=== PATIENT | female | born 1945 | race Caucasian/White ===

== ENCOUNTER 2017-07-14 12:20 | Inpatient (IN) | payer MEDICARE, MEDICAID ==
[2017-07-14] MEDS ORDERED: oxyCODONE 5 MG Tab PO PRN (17:13)
[2017-07-14] MEDS ORDERED: traMADol 50 MG Tab PO PRN (17:15)
[2017-07-14] MEDS ORDERED: Zolpidem 5 MG Tab PO PRN (17:31)
[2017-07-14] MEDS: Furosemide 40 MG Tab PO SCH (17:37)
[2017-07-14] MEDS: Celecoxib 100 MG Cap PO SCH ×2 (17:37→17:39)
--- NOTE | 2017-07-14 17:41 | PCM.HP ---
H&P History of Present Illness - General Date of Service: 07/14/17 Admit Problem/Dx: Left Total Knee Arthroplasty Admission Diagnosis/Problem Admission Diagnosis/Problem Arthroplasty of knee Source of Information: Patient History Limitations: Reports: No Limitations - History of Present Illness Initial Comments - Free Text/Narative: Jessenia is a 71 year old female who is admitted to swing bed from [facility]. She has a left total knee arthroplasty on 07/10/[address] Willis at [facility]. She denies any complications in the intra op or post operative period. She reports her pain has been well controlled and she has been moving around well. She denies any numbness or tingling to affected area. Does report some bruising to left knee. Symptom Onset Date: 07/10/17 Location: Reports: Lower Extremity, Left Left Knee Pain Score (Numeric/FACES): 4 - Related Data Allergies/Adverse Reactions: Allergies Allergy/AdvReac Type Severity Reaction Status Date / Time No Known Allergies Allergy Verified 07/14/17 15:57 Home Medications: Home Meds Allopurinol 300 mg PO DAILY 01/03/15 [History] Ascorbic Acid [Vitamin C] 500 mg PO DAILY 01/03/15 [History] Chromium Picolinate 600 mcg PO DAILY 01/03/15 [History] Furosemide 40 mg PO BID 01/03/15 [History] Insulin Glarg,Human.Rec.Analog [LantUS] 20 unit SUBCUT BEDTIME 01/03/15 [History ] Levothyroxine 200 mcg PO ACBREAKFAST 01/03/15 [History] Oxybutynin 5 mg PO TID 01/03/15 [History] Potassium Chloride [Klor-Con M20] 20 meq PO DAILY 01/03/15 [History] Spironolactone [Spironolactone] 25 mg PO DAILY 01/03/15 [History] Vitamin B Complex 3 each PO DAILY 01/03/15 [History] Vitamin E 400 unit PO DAILY 01/03/15 [History] Zolpidem Tartrate 10 mg PO BEDTIME PRN 01/03/15 [History] Calcium Carbonate/Vitamin D3 [Calcium 500-Vit D3 200 Tablet] 1 tab PO DAILY 06/22 [History] Lecithin 1,200 mg PO DAILY 07/14/17 [History] Magnesium Gluconate [Mag-G] 500 mg PO DAILY 07/14/17 [History] Multivitamin with Minerals [Multiple Vitamin] 1 tab PO DAILY 07/14/17 [History] Past Medical History HEENT History: Reports: Impaired Vision Cardiovascular History: Reports: Afib, CAD, High Cholesterol, Hypertension Musculoskeletal History: Reports: Gout Endocrine/Metabolic History: Reports: Diabetes, Type II, Hypothyroidism, Obesity /BMI 30+ Hematologic History: Reports: Anticoagulation Therapy - Infectious Disease History Infectious Disease History: Reports: MRSA, Other (See Below) 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 - Past Surgical History Dermatological Surgical History: Reports: Other (See Below) Social & Family History - Family History Family Medical History: Noncontributory - Tobacco Use Smoking Status *Q: Never Smoker Years of Tobacco use: 20 Used Tobacco, but Quit: Yes Month Tobacco Last Used: 2002 - Caffeine Use Caffeine Use: Reports: None - Recreational Drug Use Recreational Drug Use: No - Living Situation & Occupation Living situation: Reports: Single, Alone Occupation: Retired H&P Review of Systems - Review of Systems: Review Of Systems: See Below General: Reports: No Symptoms HEENT: Reports: No Symptoms Pulmonary: Reports: No Symptoms Cardiovascular: Reports: No Symptoms Gastrointestinal: Reports: No Symptoms Genitourinary: Reports: No Symptoms Musculoskeletal: Reports: Joint Pain (bilateral knees, left > right), Joint Swelling (left knee) Skin: Reports: Dryness Neurological: Reports: No Symptoms Exam - Exam Exam: See Below - Vital Signs Vital Signs: Last Vital Signs Temp 98.4 F 07/14/17 16:04 Pulse 146 H 07/14/17 16:04 Resp 18 07/14/17 16:04 BP 134/78 07/14/17 16:04 Pulse Ox 97 07/14/17 16:04 Weight: 310 lb - Exam General: Alert, Oriented HEENT: PERRLA, Hearing Intact, Mucosa Moist & [place], Nares Patent, Normal Nasal Septum, Posterior Pharynx Clear, Conjunctiva Clear, EOMI, EACs Clear, TMs Clear Neck: Supple, Trachea Midline, 2 Lungs: Clear to Auscultation, Normal Respiratory Effort Cardiovascular: Regular Rate, Regular Rhythm GI/Abdominal Exam: Normal Bowel Sounds, Soft, Non-Tender, No Organomegaly, No Distention, No Abnormal Bruit, No Mass, Pelvis Stable (Female) Exam: Deferred Rectal (Female) Exam: Deferred Back Exam: Normal Inspection, Full Range of Motion, NT Extremities: Normal Inspection (Joint pain and swelling to left knee), Normal Range of Motion, Non-Tender, No Pedal Edema, Normal Capillary Refill Peripheral Pulses: 1+: Posterior Tibial (L), Dorsalis Pedis (L) Skin: Warm, Dry, Intact, Ecchymosis (to left knee) Neurological: Cranial Nerves Intact, Reflexes Equal Bilateral Neuro Extensive - Mental Status: Alert, Oriented x3, Normal Cognition, Memory Intact, Other (anxious) Neuro Extensive - Motor, Sensory, Reflexes: CN II-XII Intact, Normal Gait, Normal Reflexes Psychiatric: Alert, Labile Mood, Anxious *Q Meaningful Use (ADM) - VTE *Q VTE Criteria *Q: - Stroke *Q Stroke Criteria *Q: - AMI *Q AMI Criteria *Q: - Problem List (1) Status post total left knee replacement SNOMED Code(s): 2576840992414 ICD Code: Z96.652 - PRESENCE OF LEFT ARTIFICIAL KNEE JOINT Status: Acute Current Visit: Yes (2) Status post total knee replacement, left SNOMED Code(s): 5633723033015 ICD Code: Z96.652 - PRESENCE OF LEFT ARTIFICIAL KNEE JOINT Status: Acute Current Visit: Yes Problem List Initiated/Reviewed/Updated: Yes Orders Last 24hrs: Active Orders 24 hr Category Date Time Status Patient Status [ADT] Routine ADT 07/14/17 16:57 Active Ambulate [RC] .PRN Care 07/14/17 16:57 Active Dressing Change [Wound Care] [RC] 08 Care 07/14/17 17:20 Active Glucose [Blood Glucose Check, Bedside] [RC] 08 Care 07/14/17 20:00 Active Up With Assistance [RC] .PRN Care 07/14/17 16:57 Active Up to Chair [RC] .PRN Care 07/14/17 16:57 Active Vital Signs [RC] 08 Care 07/14/17 16:57 Active Regular Diet [DIET] Diet 07/14/17 Dinner Active BMP [BASIC METABOLIC PANEL,BMP] [CHEM] Routine Lab 07/14/17 17:21 Ordered CBC WITH AUTO DIFF [HEME] Routine Lab 07/14/17 17:21 Ordered MAGNESIUM [CHEM] Routine Lab 07/14/17 17:21 Ordered UA W/MICROSCOPIC [URIN] Routine Lab 07/14/17 17:21 Uncollected Acetaminophen/HYDROcodone [[place] 325-5 MG] Med 07/14/17 17:12 Active 1 tab PO Q6H PRN Allopurinol [Zyloprim] Med 07/15/17 08:00 Active 300 mg PO DAILY Ascorbic Acid [Vitamin C] Med 07/15/17 08:00 Active 500 mg PO DAILY Aspirin Med 07/15/17 08:00 Active 325 mg PO WITHBREAKFAST Calcium Carbonate/Vitamin D3 [Calcium Carbonate/Vitamin Med 07/15/17 08:00 Active D 1250 MG-200 Unit] 1 tab PO DAILY Celecoxib [CeleBREX] Med 07/14/17 17:15 Active 100 mg PO BIDMEALS Chromium Picolinate [Chromium Picolinate] Med 07/15/17 08:00 Ordered 600 mcg PO DAILY Furosemide [Lasix] Med 07/14/17 18:00 Active 40 mg PO BIDDIURETIC Insulin Detemir [Levemir] Med 07/14/17 20:00 Active 20 unit SUBCUT BEDTIME Lecithin [Lecithin] Med 07/15/17 08:00 Ordered 1,200 mg PO DAILY Levothyroxine [Synthroid] Med 07/15/17 07:00 Active 200 mcg PO ACBREAKFAST Lisinopril [Prinivil] Med 07/15/17 08:00 Active 5 mg PO 0800,1200 Magnesium Oxide Med 07/15/17 08:00 Active 500 mg PO DAILY Multivitamins [Tab-A-Addy] Med 07/15/17 08:00 Active 1 tab PO DAILY Oxybutynin Med 07/14/17 20:00 Active 5 mg PO TID Polyethylene Glycol 3350 [MiraLAX] Med 07/15/17 08:00 Active 17 gm PO DAILY Potassium Chloride [Klor-Con 10] Med 07/15/17 08:00 Active 20 meq PO DAILY Sennosides [Senna] Med 07/14/17 20:00 Active 8.6 mg PO BID Spironolactone [Aldactone] Med 07/15/17 08:00 Active 25 mg PO DAILY Vitamin B Complex Med 07/15/17 08:00 Active 3 each PO DAILY Vitamin E (dl, acetate) [Vitamin E] Med 07/15/17 08:00 Active 400 units PO DAILY Zolpidem [Ambien] Med 07/14/17 17:31 Active 10 mg PO BEDTIME PRN oxyCODONE Med 07/14/17 17:13 Active 5 mg PO Q6H PRN traMADol [Ultram] Med 07/14/17 17:15 Active 100 mg PO Q6H PRN Resuscitation Status Routine Resus Stat 07/14/17 16:57 Ordered Medication Orders Hydrocodone Bitart/Acetaminophen ([place] 325-5 Mg) 1 tab PO Q6H PRN PRN Reason: Pain Stop: 07/20/17 17:13 Allopurinol (Zyloprim) 300 mg PO DAILY [facility] Ascorbic Acid (Vitamin C) 500 mg PO DAILY [facility] Aspirin (Aspirin) 325 mg PO WITHBREAKFAST [facility] Stop: 07/25/17 08:01 Calcium Carbonate (Calcium Carbonate/Vitamin D 1250 Mg-200 Unit) 1 tab PO DAILY [facility] Celecoxib (Celebrex) 100 mg PO BIDMEALS [facility] Stop: 07/21/17 17:16 Furosemide (Lasix) 40 mg PO BIDDIURETIC [facility] Insulin Detemir (Levemir) 20 unit SUBCUT BEDTIME [facility] Levothyroxine Sodium (Synthroid) 200 mcg PO ACBREAKFAST [facility] Lisinopril (Prinivil) 5 mg PO 0800,1200 [facility] Magnesium Oxide (Magnesium Oxide) 500 mg PO DAILY [facility] Multivitamins/Minerals/Vitamin C (Tab-A-Addy) 1 tab PO DAILY [facility] Non-Formulary Medication (Chromium Picolinate [Chromium Picolinate]) 600 mcg PO DAILY [facility] Non-Formulary Medication (Lecithin [Lecithin]) 1,200 mg PO DAILY [facility] Oxybutynin Chloride (Oxybutynin) 5 mg PO TID [facility] Oxycodone HCl (Oxycodone) 5 mg PO Q6H PRN PRN Reason: pain Polyethylene Glycol (Miralax) 17 gm PO DAILY [facility] Potassium Chloride (Klor-Con 10) 20 meq PO DAILY [facility] Senna (Senna) 8.6 mg PO BID [facility] Spironolactone (Aldactone) 25 mg PO DAILY [facility] Tramadol HCl (Ultram) 100 mg PO Q6H PRN PRN Reason: Pain Stop: 07/21/17 17:16 Vitamin B Complex (Vitamin B Complex) 3 each PO DAILY [facility] Vitamin E (Vitamin E) 400 units PO DAILY [facility] Zolpidem Tartrate (Ambien) 10 mg PO BEDTIME PRN PRN Reason: Insomnia
[2017-07-14 17:49] LABS: CHLORIDE,CL 107 mEq/L (98-106); SODIUM,NA 142 mEq/L (136-145)
[2017-07-14] MEDS ORDERED: Insulin Detemir 100 Units/ML 3 ML Pen SUBCUT SCH (20:00)
[2017-07-14] MEDS: Sennosides 8.6 MG Tab PO SCH (20:12)
[2017-07-14] MEDS: Oxybutynin 5 MG Tab PO SCH (20:12)
[2017-07-15] MEDS ORDERED: Aspirin 325 MG Tab PO SCH (08:00)
[2017-07-15] MEDS ORDERED: Polyethylene Glycol 3350 Powder 17 GM Packet PO SCH (08:00)
[2017-07-15] MEDS: Levothyroxine 100 MCG Tab PO SCH (08:01)
[2017-07-15] MEDS: Multivitamin Tab PO SCH (08:02)
[2017-07-15] MEDS: Vitamin B Complex Cap PO SCH (08:03)
[2017-07-15] MEDS: Oxybutynin 5 MG Tab PO SCH ×3 (08:03→20:13)
[2017-07-15] MEDS: Spironolactone 25 MG Tab PO SCH (08:04)
[2017-07-15] MEDS: Potassium Chloride 10 MEQ Tab.ER PO SCH (08:04)
[2017-07-15] MEDS: Allopurinol 300 MG Tab PO SCH (08:05)
[2017-07-15] MEDS: Furosemide 40 MG Tab PO SCH ×2 (08:05→15:52)
[2017-07-15] MEDS: Celecoxib 100 MG Cap PO SCH ×2 (08:05→17:34)
[2017-07-15] MEDS: Ascorbic Acid 500 MG Tab PO SCH (08:05)
[2017-07-15] MEDS: Sennosides 8.6 MG Tab PO SCH (08:06)
[2017-07-15] MEDS: Vitamin E (dl-alpha-tocopherol acetate) 400 Unit Cap PO SCH (08:06)
[2017-07-15] MEDS: Calcium Carbonate/Vitamin D3 1250 MG-200 Unit Tab PO SCH (08:06)
[2017-07-15] MEDS: Lisinopril 5 MG Tab PO SCH ×2 (08:08→11:57)
[2017-07-15] MEDS ORDERED: Sennosides 8.6 MG Tab PO PRN (08:17)
[2017-07-15] MEDS ORDERED: Polyethylene Glycol 3350 Powder 17 GM Packet PO PRN (08:30)
[2017-07-15] MEDS: CHROMIUM PICOLINATE PO SCH (09:15)
[2017-07-15] MEDS: LECITHIN 1200 MG PO SCH (09:15)
[2017-07-15] MEDS: Insulin Detemir 100 Units/ML 3 ML Pen SUBCUT SCH (20:13)
[2017-07-15] MEDS: Acetaminophen/HYDROcodone 325-5 MG Tab PO PRN (22:35)
[2017-07-16] MEDS: Acetaminophen/HYDROcodone 325-5 MG Tab PO PRN ×2 (06:56→22:11)
[2017-07-16] MEDS: Levothyroxine 100 MCG Tab PO SCH (06:56)
[2017-07-16] MEDS: Vitamin B Complex Cap PO SCH (08:08)
[2017-07-16] MEDS: Allopurinol 300 MG Tab PO SCH (08:09)
[2017-07-16] MEDS: Ascorbic Acid 500 MG Tab PO SCH (08:09)
[2017-07-16] MEDS: Spironolactone 25 MG Tab PO SCH (08:09)
[2017-07-16] MEDS: Celecoxib 100 MG Cap PO SCH ×2 (08:09→17:14)
[2017-07-16] MEDS: Potassium Chloride 10 MEQ Tab.ER PO SCH (08:09)
[2017-07-16] MEDS: Calcium Carbonate/Vitamin D3 1250 MG-200 Unit Tab PO SCH (08:09)
[2017-07-16] MEDS: Aspirin 325 MG Tab.EC PO SCH (08:09)
[2017-07-16] MEDS: Oxybutynin 5 MG Tab PO SCH ×3 (08:09→20:36)
[2017-07-16] MEDS: Vitamin E (dl-alpha-tocopherol acetate) 400 Unit Cap PO SCH (08:09)
[2017-07-16] MEDS: Multivitamin Tab PO SCH (08:09)
[2017-07-16] MEDS: Furosemide 40 MG Tab PO SCH (08:12)
[2017-07-16] MEDS: LECITHIN 1200 MG PO SCH (08:13)
[2017-07-16] MEDS: CHROMIUM PICOLINATE PO SCH (08:13)
[2017-07-16] MEDS: Lisinopril 5 MG Tab PO SCH ×2 (08:29→12:19)
--- NOTE | 2017-07-16 10:15 | PCM.PN ---
- General Info Date of Service: 07/16/17 Admission Dx/Problem (Free Text): State Post Left Total Knee Arthroscopy Functional Status: Reports: Pain Controlled, Tolerating Diet, Ambulating, Urinating - Review of Systems General: Reports: No Symptoms HEENT: Reports: No Symptoms Pulmonary: Reports: No Symptoms Cardiovascular: Reports: No Symptoms Gastrointestinal: Reports: No Symptoms Genitourinary: Reports: No Symptoms Musculoskeletal: Reports: Joint Pain, Joint Swelling (left knee) Skin: Reports: Other (luis felipe BLE) Neurological: Reports: No Symptoms Psychiatric: Reports: No Symptoms - Patient Data Vitals - Most Recent: Last Vital Signs Temp 98.1 F 07/16/17 08:00 Pulse 120 H 07/16/17 08:00 Resp 16 07/16/17 08:00 BP 125/89 07/16/17 08:29 Pulse Ox 92 L 07/16/17 08:00 Weight - Most Recent: 310 lb Lab Results Last 24 Hours: Laboratory Results - last 24 hr 07/16/17 Range/Units 07:15 POC Glucose 67 L (75-105) mg/dl Lio Results Last 24 Hours: Microbiology 07/15/17 14:55 MRSA Clearance Screen - Final Nares, Unspecified NO MRSA ISOLATED 07/14/17 17:50 MRSA Clearance Screen - Final Nose, Unspecified NO MRSA ISOLATED Med Orders - Current: Current Medications Hydrocodone Bitart/Acetaminophen ([place] 325-5 Mg) 1 tab PO Q6H PRN PRN Reason: Pain Stop: 07/20/17 17:13 Last Admin: 07/16/17 06:56 Dose: 1 tab Allopurinol (Zyloprim) 300 mg PO DAILY [facility] Last Admin: 07/16/17 08:09 Dose: 300 mg Ascorbic Acid (Vitamin C) 500 mg PO DAILY [facility] Last Admin: 07/16/17 08:09 Dose: 500 mg Aspirin (Ecotrin) 325 mg PO WITHBREAKFAST [facility] Stop: 07/25/17 08:01 Last Admin: 07/16/17 08:09 Dose: 325 mg Calcium Carbonate (Calcium Carbonate/Vitamin D 1250 Mg-200 Unit) 1 tab PO DAILY [facility] Last Admin: 07/16/17 08:09 Dose: 1 tab Celecoxib (Celebrex) 100 mg PO BIDMEALS [facility] Stop: 07/21/17 17:16 Last Admin: 07/16/17 08:09 Dose: 100 mg Furosemide (Lasix) 40 mg PO DAILY [facility] Last Admin: 07/16/17 08:12 Dose: 40 mg Insulin Detemir (Levemir) 20 unit SUBCUT BEDTIME [facility] Last Admin: 07/15/17 20:13 Dose: 20 unit Levothyroxine Sodium (Synthroid) 200 mcg PO ACBREAKFAST [facility] Last Admin: 07/16/17 06:56 Dose: 200 mcg Lisinopril (Prinivil) 5 mg PO 0800,1200 [facility] Last Admin: 07/16/17 08:29 Dose: 5 mg Magnesium Oxide (Magnesium Oxide) 500 mg PO DAILY [facility] Last Admin: 07/16/17 08:09 Dose: 500 mg Multivitamins/Minerals/Vitamin C (Tab-A-Addy) 1 tab PO DAILY [facility] Last Admin: 07/16/17 08:09 Dose: 1 tab Ptom [Chromium (Picolinate] 600 Mcg)) 600 mcg PO DAILY [facility] Last Admin: 07/16/17 08:13 Dose: Not Given Ptom [Lecithin] 1, (200 Mg)) 1,200 mg PO DAILY [facility] Last Admin: 07/16/17 08:13 Dose: Not Given Oxybutynin Chloride (Oxybutynin) 5 mg PO TID [facility] Last Admin: 07/16/17 08:09 Dose: 5 mg Oxycodone HCl (Oxycodone) 5 mg PO Q6H PRN PRN Reason: pain Polyethylene Glycol (Miralax) 17 gm PO DAILY PRN PRN Reason: CONSTIPATION Potassium Chloride (Klor-Con 10) 20 meq PO DAILY [facility] Last Admin: 07/16/17 08:09 Dose: 20 meq Senna (Senna) 8.6 mg PO BID PRN PRN Reason: CONSTIPATION Spironolactone (Aldactone) 25 mg PO DAILY [facility] Last Admin: 07/16/17 08:09 Dose: 25 mg Tramadol HCl (Ultram) 100 mg PO Q6H PRN PRN Reason: Pain Stop: 07/21/17 17:16 Vitamin B Complex (Vitamin B Complex) 3 each PO DAILY [facility] Last Admin: 07/16/17 08:08 Dose: 3 each Vitamin E (Vitamin E) 400 units PO DAILY [facility] Last Admin: 07/16/17 08:09 Dose: 400 units Zolpidem Tartrate (Ambien) 10 mg PO BEDTIME PRN PRN Reason: Insomnia Discontinued Medications Aspirin (Aspirin) 325 mg PO WITHBREAKFAST [facility] Stop: 07/25/17 08:01 Last Admin: 07/15/17 08:05 Dose: 325 mg Furosemide (Lasix) 40 mg PO BIDDIURETIC [facility] Last Admin: 07/15/17 15:52 Dose: Not Given Insulin Detemir (Levemir) 20 unit SUBCUT BEDTIME [facility] Last Admin: 07/14/17 20:16 Dose: 20 unit Polyethylene Glycol (Miralax) 17 gm PO DAILY [facility] Last Admin: 07/15/17 08:06 Dose: Not Given Senna (Senna) 8.6 mg PO BID [facility] Last Admin: 07/15/17 08:06 Dose: Not Given - Exam General: Alert, Oriented, No Acute Distress HEENT: Pupils Equal, Pupils Reactive, EOMI, Mucous Membr. Moist/[place] Neck: Supple Lungs: Clear to Auscultation, Normal Respiratory Effort Cardiovascular: Regular Rate, Irregular Rhythm GI/Abdominal Exam: Normal Bowel Sounds, Soft, Non-Tender, No Organomegaly, No Distention, No Abnormal Bruit, No Mass, Pelvis Stable Extremities: Normal Capillary Refill, Joint Swelling (left knee), Leg Pain, Limited Range of Motion (left knee), Redness (redness to distal BLE) Peripheral Pulses: 1+: Posterior Tibial (L), Dorsalis Pedis (L) Skin: Warm, Dry, Intact, Other (flaky) Wound/Incisions: Dressing Dry and Intact, No Drainage Neurological: No New Focal Deficit Psy/Mental Status: Alert, Normal Affect, Labile Mood - Problem List & Annotations (1) Status post total left knee replacement SNOMED Code(s): 8219806180644 Code(s): Z96.652 - PRESENCE OF LEFT ARTIFICIAL KNEE JOINT Status: Acute Current Visit: Yes (2) History of diabetes mellitus SNOMED Code(s): 835083724 Code(s): Z86.39 - PERSONAL HISTORY OF ENDO, NUTRITIONAL AND METABOLIC DISEASE Status: Chronic Priority: High Current Visit: Yes - Problem List Review Problem List Initiated/Reviewed/Updated: Yes - My Orders Last 24 Hours: My Active Orders 07/15/17 20:00 Insulin Detemir [Levemir] 20 unit SUBCUT BEDTIME 07/16/17 08:00 Aspirin [Ecotrin] 325 mg PO WITHBREAKFAST Furosemide [Lasix] 40 mg PO DAILY 07/16/17 09:43 CULTURE MRSA CLEARANCE [RM] Routine - Assessment Assessment:: Patient appears to be recovering well. Left knee swollen with some ecchymosis. Working well with therapy. Diabetes well controlled. - Plan Plan:: Continue physical therapy. Encouraged ambulation and activity. Switch furosemide 40 mg BID to once daily. Continue all other current cares.
[2017-07-16] MEDS: Metoprolol Succinate 25 MG Tab.ER PO SCH (12:19)
--- NOTE | 2017-07-16 16:14 | PCM.PN ---
- General Info Date of Service: 07/16/17 Admission Dx/Problem (Free Text): Call from nursing that patient was tachycardia and had an irregular pulse while ambulating earlier this morning. - Patient Data Vitals - Most Recent: Last Vital Signs Temp 98.1 F 07/16/17 08:00 Pulse 120 H 07/16/17 12:19 Resp 16 07/16/17 08:00 BP 125/89 07/16/17 12:19 Pulse Ox 92 L 07/16/17 08:00 Weight - Most Recent: 310 lb Lab Results Last 24 Hours: Laboratory Results - last 24 hr 07/16/17 07/16/17 07/16/17 Range/Units 07:15 12:02 12:02 D-Dimer, Quantitative 2.44 H (0.00-0.50) POC Glucose 67 L (75-105) mg/dl NT-Pro-B Natriuret Pep 5465 H (0-1000) pg/mL Lio Results Last 24 Hours: Microbiology 07/15/17 14:55 MRSA Clearance Screen - Final Nares, Unspecified NO MRSA ISOLATED Med Orders - Current: Current Medications Hydrocodone Bitart/Acetaminophen ([place] 325-5 Mg) 1 tab PO Q6H PRN PRN Reason: Pain Stop: 07/20/17 17:13 Last Admin: 07/16/17 06:56 Dose: 1 tab Allopurinol (Zyloprim) 300 mg PO DAILY [facility] Last Admin: 07/16/17 08:09 Dose: 300 mg Ascorbic Acid (Vitamin C) 500 mg PO DAILY [facility] Last Admin: 07/16/17 08:09 Dose: 500 mg Aspirin (Ecotrin) 325 mg PO WITHBREAKFAST [facility] Stop: 07/25/17 08:01 Last Admin: 07/16/17 08:09 Dose: 325 mg Calcium Carbonate (Calcium Carbonate/Vitamin D 1250 Mg-200 Unit) 1 tab PO DAILY [facility] Last Admin: 07/16/17 08:09 Dose: 1 tab Celecoxib (Celebrex) 100 mg PO BIDMEALS [facility] Stop: 07/21/17 17:16 Last Admin: 07/16/17 08:09 Dose: 100 mg Furosemide (Lasix) 40 mg PO DAILY [facility] Last Admin: 07/16/17 08:12 Dose: 40 mg Insulin Detemir (Levemir) 20 unit SUBCUT BEDTIME [facility] Last Admin: 07/15/17 20:13 Dose: 20 unit Levothyroxine Sodium (Synthroid) 200 mcg PO ACBREAKFAST [facility] Last Admin: 07/16/17 06:56 Dose: 200 mcg Lisinopril (Prinivil) 5 mg PO 0800,1200 [facility] Last Admin: 07/16/17 12:19 Dose: 5 mg Magnesium Oxide (Magnesium Oxide) 500 mg PO DAILY [facility] Last Admin: 07/16/17 08:09 Dose: 500 mg Metoprolol Succinate (Toprol Xl) 25 mg PO DAILY [facility] Last Admin: 07/16/17 12:19 Dose: 25 mg Multivitamins/Minerals/Vitamin C (Tab-A-Addy) 1 tab PO DAILY [facility] Last Admin: 07/16/17 08:09 Dose: 1 tab Ptom [Chromium (Picolinate] 600 Mcg)) 600 mcg PO DAILY [facility] Last Admin: 07/16/17 08:13 Dose: Not Given Ptom [Lecithin] 1, (200 Mg)) 1,200 mg PO DAILY [facility] Last Admin: 07/16/17 08:13 Dose: Not Given Oxybutynin Chloride (Oxybutynin) 5 mg PO TID [facility] Last Admin: 07/16/17 14:22 Dose: 5 mg Oxycodone HCl (Oxycodone) 5 mg PO Q6H PRN PRN Reason: pain Polyethylene Glycol (Miralax) 17 gm PO DAILY PRN PRN Reason: CONSTIPATION Potassium Chloride (Klor-Con 10) 20 meq PO DAILY [facility] Last Admin: 07/16/17 08:09 Dose: 20 meq Senna (Senna) 8.6 mg PO BID PRN PRN Reason: CONSTIPATION Spironolactone (Aldactone) 25 mg PO DAILY [facility] Last Admin: 07/16/17 08:09 Dose: 25 mg Tramadol HCl (Ultram) 100 mg PO Q6H PRN PRN Reason: Pain Stop: 07/21/17 17:16 Vitamin B Complex (Vitamin B Complex) 3 each PO DAILY [facility] Last Admin: 07/16/17 08:08 Dose: 3 each Vitamin E (Vitamin E) 400 units PO DAILY [facility] Last Admin: 07/16/17 08:09 Dose: 400 units Zolpidem Tartrate (Ambien) 10 mg PO BEDTIME PRN PRN Reason: Insomnia Discontinued Medications Aspirin (Aspirin) 325 mg PO WITHBREAKFAST [facility] Stop: 07/25/17 08:01 Last Admin: 07/15/17 08:05 Dose: 325 mg Furosemide (Lasix) 40 mg PO BIDDIURETIC [facility] Last Admin: 07/15/17 15:52 Dose: Not Given Insulin Detemir (Levemir) 20 unit SUBCUT BEDTIME [facility] Last Admin: 07/14/17 20:16 Dose: 20 unit Polyethylene Glycol (Miralax) 17 gm PO DAILY [facility] Last Admin: 07/15/17 08:06 Dose: Not Given Senna (Senna) 8.6 mg PO BID [facility] Last Admin: 07/15/17 08:06 Dose: Not Given - Problem List & Annotations (1) Status post total left knee replacement SNOMED Code(s): 6327629490097 Code(s): Z96.652 - PRESENCE OF LEFT ARTIFICIAL KNEE JOINT Status: Acute Current Visit: Yes (2) History of diabetes mellitus SNOMED Code(s): 752760167 Code(s): Z86.39 - PERSONAL HISTORY OF ENDO, NUTRITIONAL AND METABOLIC DISEASE Status: Chronic Priority: High Current Visit: Yes (3) Atrial fibrillation with RVR SNOMED Code(s): 500640614675556 Code(s): I48.91 - UNSPECIFIED ATRIAL FIBRILLATION Status: Acute Priority : High Current Visit: Yes - Problem List Review Problem List Initiated/Reviewed/Updated: Yes - My Orders Last 24 Hours: My Active Orders 07/15/17 20:00 Insulin Detemir [Levemir] 20 unit SUBCUT BEDTIME 07/16/17 08:00 Aspirin [Ecotrin] 325 mg PO WITHBREAKFAST Furosemide [Lasix] 40 mg PO DAILY 07/16/17 09:43 CULTURE MRSA CLEARANCE [RM] Routine 07/16/17 12:15 Metoprolol Succinate [Toprol XL] 25 mg PO DAILY 07/16/17 15:03 CTA Chest W WO Contrast [Ang Chest] [CT] Stat 07/16/17 15:04 Echo Comp wo Cont [US] Routine - Assessment Assessment:: Patient in atrial fibrillation with rapid ventricular rate and PACs. - Plan Plan:: EKG ordered and interpreted by this sql report writer and Dr. Rust. EKG shows atrial fibrillation with rapid ventricular rate and PACs. Will start patient on metoprolol. Labs ordered due to new onset uncontrolled a fib include a D-Dimer and pro BNP. D-Dimer and pro BNP both elevated. CTA chest and echo ordered. Discussed the findings and plan of care with patient who verbalized understanding. Patient somewhat rude during discussion, but agreeable to plan of care. Appreciative that "we are looking into things and figuring things out. "
[2017-07-16] MEDS ORDERED: Iopamidol 755 Mg/ML 100 ML Bottle IVPUSH ONE (16:17)
[2017-07-16] MEDS: Insulin Detemir 100 Units/ML 3 ML Pen SUBCUT SCH (20:37)
[2017-07-17] MEDS: Acetaminophen/HYDROcodone 325-5 MG Tab PO PRN ×2 (05:50→16:45)
[2017-07-17] MEDS: Levothyroxine 100 MCG Tab PO SCH (06:57)
[2017-07-17] MEDS: Vitamin B Complex Cap PO SCH (08:25)
[2017-07-17] MEDS: Vitamin E (dl-alpha-tocopherol acetate) 400 Unit Cap PO SCH (08:26)
[2017-07-17] MEDS: Furosemide 40 MG Tab PO SCH ×3 (08:26→16:45)
[2017-07-17] MEDS: Calcium Carbonate/Vitamin D3 1250 MG-200 Unit Tab PO SCH (08:27)
[2017-07-17] MEDS: Metoprolol Succinate 25 MG Tab.ER PO SCH (08:27)
[2017-07-17] MEDS: Ascorbic Acid 500 MG Tab PO SCH (08:27)
[2017-07-17] MEDS: Oxybutynin 5 MG Tab PO SCH ×3 (08:27→19:43)
[2017-07-17] MEDS: Spironolactone 25 MG Tab PO SCH (08:27)
[2017-07-17] MEDS: Celecoxib 100 MG Cap PO SCH ×2 (08:27→16:43)
[2017-07-17] MEDS: Potassium Chloride 10 MEQ Tab.ER PO SCH (08:28)
[2017-07-17] MEDS: Allopurinol 300 MG Tab PO SCH (08:28)
[2017-07-17] MEDS: LECITHIN 1200 MG PO SCH (08:34)
[2017-07-17] MEDS: CHROMIUM PICOLINATE PO SCH (08:37)
[2017-07-17] MEDS: Aspirin 81 MG Tab.EC PO SCH (08:43)
[2017-07-17] MEDS: Carvedilol 3.125 MG Tab PO SCH ×2 (08:43→16:44)
[2017-07-17] MEDS: Multivitamin Tab PO SCH (08:44)
[2017-07-17] MEDS: Lisinopril 5 MG Tab PO SCH ×2 (08:50→11:41)
[2017-07-17] MEDS: Aspirin 325 MG Tab.EC PO SCH (10:15)
--- NOTE | 2017-07-17 11:06 | PN ---
DATE: 07/17/2017 S: Jessenia Kearney is in swing bed status post knee; had a little difficulty with atrial fibrillation yesterday. D-dimer was elevated. Did a CTA of the chest, no blood clots. She has pleural effusions. O: On examination, NECK: Supple. CHEST: Decreased breath sounds bilaterally. CARDIAC: Sounds irregularly irregular. Minimal edema. EXTREMITIES: Knee replacement looks good. ASSESSMENT: ATRIAL FIBRILLATION WITH CONGESTIVE HEART FAILURE. P: We are going to increase her diuretics and start her on some Coreg. Echo pending. I talked to her at length about anticoagulation and she is in agreement. KAYDEN/YULI /[id number]
[2017-07-17] MEDS: Warfarin 5 MG Tab PO SCH (11:42)
[2017-07-17] MEDS: Insulin Detemir 100 Units/ML 3 ML Pen SUBCUT SCH (19:45)
[2017-07-18 07:47] LABS: CHLORIDE,CL 105 mEq/L (98-106); SODIUM,NA 141 mEq/L (136-145)
[2017-07-18] MEDS: Levothyroxine 100 MCG Tab PO SCH (08:01)
[2017-07-18] MEDS: Furosemide 40 MG Tab PO SCH ×2 (08:02→17:05)
[2017-07-18] MEDS: Acetaminophen/HYDROcodone 325-5 MG Tab PO PRN (08:02)
--- NOTE | 2017-07-18 08:38 | PN ---
DATE: 07/18/2017 S: Thais Kearney is in atrial fibrillation. She had refused Coumadin in the past, but I talked to her at length about it and she is now is in agreement. O: On examination; NECK: Supple. CHEST: Clear. CARDIAC: Irregularly irregular. ASSESSMENT: ATRIAL FIBRILLATION, CONGESTIVE HEART FAILURE, CONTINUE ANTICOAGULATION. STARTED ON COREG. HER PULSE IS MUCH BETTER. SHE FEELS BETTER THIS MORNING. KAYDEN/YULI /[id number]
[2017-07-18] MEDS: Multivitamin Tab PO SCH (09:12)
[2017-07-18] MEDS: Vitamin B Complex Cap PO SCH (09:12)
[2017-07-18] MEDS: Allopurinol 300 MG Tab PO SCH (09:13)
[2017-07-18] MEDS: Vitamin E (dl-alpha-tocopherol acetate) 400 Unit Cap PO SCH (09:13)
[2017-07-18] MEDS: Metoprolol Succinate 25 MG Tab.ER PO SCH (09:14)
[2017-07-18] MEDS: Ascorbic Acid 500 MG Tab PO SCH (09:14)
[2017-07-18] MEDS: Carvedilol 3.125 MG Tab PO SCH ×2 (09:15→17:04)
[2017-07-18] MEDS: Potassium Chloride 10 MEQ Tab.ER PO SCH (09:15)
[2017-07-18] MEDS: Aspirin 81 MG Tab.EC PO SCH (09:15)
[2017-07-18] MEDS: Calcium Carbonate/Vitamin D3 1250 MG-200 Unit Tab PO SCH (09:15)
[2017-07-18] MEDS: Celecoxib 100 MG Cap PO SCH ×2 (09:16→17:05)
[2017-07-18] MEDS: Oxybutynin 5 MG Tab PO SCH ×3 (09:16→20:45)
[2017-07-18] MEDS: Spironolactone 25 MG Tab PO SCH (09:18)
[2017-07-18] MEDS: Lisinopril 5 MG Tab PO SCH ×2 (09:27→12:52)
[2017-07-18] MEDS: CHROMIUM PICOLINATE PO SCH (09:28)
[2017-07-18] MEDS: LECITHIN 1200 MG PO SCH (09:28)
[2017-07-18] MEDS: Warfarin 5 MG Tab PO SCH (12:52)
[2017-07-18] MEDS: Insulin Detemir 100 Units/ML 3 ML Pen SUBCUT SCH (20:44)
[2017-07-19] MEDS: Acetaminophen/HYDROcodone 325-5 MG Tab PO PRN ×2 (05:05→22:14)
[2017-07-19] MEDS: Levothyroxine 100 MCG Tab PO SCH ×2 (05:05→07:02)
[2017-07-19 07:18] LABS: CHLORIDE,CL 105 mEq/L (98-106); SODIUM,NA 143 mEq/L (136-145)
[2017-07-19] MEDS: Vitamin B Complex Cap PO SCH (08:24)
[2017-07-19] MEDS: Calcium Carbonate/Vitamin D3 1250 MG-200 Unit Tab PO SCH (08:25)
[2017-07-19] MEDS: Celecoxib 100 MG Cap PO SCH ×2 (08:25→17:44)
[2017-07-19] MEDS: Potassium Chloride 10 MEQ Tab.ER PO SCH (08:26)
[2017-07-19] MEDS: Ascorbic Acid 500 MG Tab PO SCH (08:26)
[2017-07-19] MEDS: Carvedilol 3.125 MG Tab PO SCH ×2 (08:26→17:44)
[2017-07-19] MEDS: Metoprolol Succinate 25 MG Tab.ER PO SCH (08:27)
[2017-07-19] MEDS: Oxybutynin 5 MG Tab PO SCH ×3 (08:27→20:25)
[2017-07-19] MEDS: Furosemide 40 MG Tab PO SCH ×2 (08:27→16:06)
[2017-07-19] MEDS: Vitamin E (dl-alpha-tocopherol acetate) 400 Unit Cap PO SCH (08:27)
[2017-07-19] MEDS: Allopurinol 300 MG Tab PO SCH (08:27)
[2017-07-19] MEDS: Spironolactone 25 MG Tab PO SCH (08:28)
[2017-07-19] MEDS: Aspirin 81 MG Tab.EC PO SCH (08:28)
[2017-07-19] MEDS: Multivitamin Tab PO SCH (08:28)
[2017-07-19] MEDS: CHROMIUM PICOLINATE PO SCH (08:29)
[2017-07-19] MEDS: LECITHIN 1200 MG PO SCH (08:29)
[2017-07-19] MEDS: Lisinopril 5 MG Tab PO SCH ×2 (08:33→11:53)
[2017-07-19] MEDS: Warfarin 5 MG Tab PO SCH (11:52)
[2017-07-19] MEDS: Insulin Detemir 100 Units/ML 3 ML Pen SUBCUT SCH (20:24)
[2017-07-20] MEDS: Acetaminophen/HYDROcodone 325-5 MG Tab PO PRN (04:46)
[2017-07-20] MEDS: Levothyroxine 100 MCG Tab PO SCH ×2 (04:46→06:46)
[2017-07-20 07:25] LABS: CHLORIDE,CL 106 mEq/L (98-106); SODIUM,NA 143 mEq/L (136-145)
[2017-07-20] MEDS: Furosemide 40 MG Tab PO SCH ×2 (07:54→16:07)
[2017-07-20] MEDS: Vitamin E (dl-alpha-tocopherol acetate) 400 Unit Cap PO SCH (07:54)
[2017-07-20] MEDS: Celecoxib 100 MG Cap PO SCH ×2 (07:54→17:26)
[2017-07-20] MEDS: Aspirin 81 MG Tab.EC PO SCH (07:54)
[2017-07-20] MEDS: Ascorbic Acid 500 MG Tab PO SCH (07:55)
[2017-07-20] MEDS: Carvedilol 3.125 MG Tab PO SCH ×2 (07:56→17:26)
[2017-07-20] MEDS: Vitamin B Complex Cap PO SCH (07:56)
[2017-07-20] MEDS: Calcium Carbonate/Vitamin D3 1250 MG-200 Unit Tab PO SCH (07:58)
[2017-07-20] MEDS: Oxybutynin 5 MG Tab PO SCH ×3 (07:58→19:57)
[2017-07-20] MEDS: Multivitamin Tab PO SCH (07:58)
[2017-07-20] MEDS: Lisinopril 5 MG Tab PO SCH ×2 (07:58→12:07)
[2017-07-20] MEDS: Potassium Chloride 10 MEQ Tab.ER PO SCH (07:58)
[2017-07-20] MEDS: Allopurinol 300 MG Tab PO SCH (07:59)
[2017-07-20] MEDS: Spironolactone 25 MG Tab PO SCH (07:59)
[2017-07-20] MEDS: LECITHIN 1200 MG PO SCH (08:00)
[2017-07-20] MEDS: CHROMIUM PICOLINATE PO SCH (08:00)
[2017-07-20] MEDS: Metoprolol Succinate 25 MG Tab.ER PO SCH (08:03)
[2017-07-20] MEDS: Warfarin 5 MG Tab PO SCH (12:07)
[2017-07-20] MEDS: Insulin Detemir 100 Units/ML 3 ML Pen SUBCUT SCH (19:57)
[2017-07-21] MEDS: Levothyroxine 100 MCG Tab PO SCH (06:27)
[2017-07-21 07:31] LABS: CHLORIDE,CL 105 mEq/L (98-106); SODIUM,NA 142 mEq/L (136-145)
[2017-07-21] MEDS: Calcium Carbonate/Vitamin D3 1250 MG-200 Unit Tab PO SCH (08:27)
[2017-07-21] MEDS: Allopurinol 300 MG Tab PO SCH (08:27)
[2017-07-21] MEDS: Metoprolol Succinate 25 MG Tab.ER PO SCH (08:28)
[2017-07-21] MEDS: Oxybutynin 5 MG Tab PO SCH ×3 (08:28→20:04)
[2017-07-21] MEDS: Vitamin E (dl-alpha-tocopherol acetate) 400 Unit Cap PO SCH (08:28)
[2017-07-21] MEDS: Ascorbic Acid 500 MG Tab PO SCH (08:28)
[2017-07-21] MEDS: Vitamin B Complex Cap PO SCH (08:28)
[2017-07-21] MEDS: Lisinopril 5 MG Tab PO SCH ×2 (08:28→12:23)
[2017-07-21] MEDS: Multivitamin Tab PO SCH (08:29)
[2017-07-21] MEDS: Potassium Chloride 10 MEQ Tab.ER PO SCH (08:29)
[2017-07-21] MEDS: Spironolactone 25 MG Tab PO SCH (08:29)
[2017-07-21] MEDS: Celecoxib 100 MG Cap PO SCH (08:29)
[2017-07-21] MEDS: Furosemide 40 MG Tab PO SCH ×2 (08:29→16:07)
[2017-07-21] MEDS: Aspirin 81 MG Tab.EC PO SCH (08:29)
[2017-07-21] MEDS: LECITHIN 1200 MG PO SCH (08:30)
[2017-07-21] MEDS: Carvedilol 3.125 MG Tab PO SCH ×2 (08:30→17:54)
[2017-07-21] MEDS: CHROMIUM PICOLINATE PO SCH (08:30)
[2017-07-21] MEDS: Warfarin 5 MG Tab PO SCH (12:23)
[2017-07-21] MEDS: Insulin Detemir 100 Units/ML 3 ML Pen SUBCUT SCH ×2 (20:04→20:24)
[2017-07-22] MEDS: Levothyroxine 100 MCG Tab PO SCH (06:12)
[2017-07-22] MEDS: Carvedilol 3.125 MG Tab PO SCH ×2 (07:22→17:04)
[2017-07-22] MEDS: Ascorbic Acid 500 MG Tab PO SCH (07:22)
[2017-07-22] MEDS: Metoprolol Succinate 25 MG Tab.ER PO SCH (07:22)
[2017-07-22] MEDS: Multivitamin Tab PO SCH (07:22)
[2017-07-22] MEDS: Potassium Chloride 10 MEQ Tab.ER PO SCH (07:22)
[2017-07-22] MEDS: Vitamin E (dl-alpha-tocopherol acetate) 400 Unit Cap PO SCH (07:22)
[2017-07-22] MEDS: Calcium Carbonate/Vitamin D3 1250 MG-200 Unit Tab PO SCH (07:22)
[2017-07-22] MEDS: Oxybutynin 5 MG Tab PO SCH ×3 (07:22→20:21)
[2017-07-22] MEDS: Allopurinol 300 MG Tab PO SCH (07:22)
[2017-07-22] MEDS: Aspirin 81 MG Tab.EC PO SCH (07:23)
[2017-07-22] MEDS: CHROMIUM PICOLINATE PO SCH (07:23)
[2017-07-22] MEDS: Vitamin B Complex Cap PO SCH (07:23)
[2017-07-22] MEDS: Furosemide 40 MG Tab PO SCH ×2 (07:23→15:54)
[2017-07-22] MEDS: Spironolactone 25 MG Tab PO SCH (07:23)
[2017-07-22] MEDS: LECITHIN 1200 MG PO SCH (07:23)
[2017-07-22] MEDS: Lisinopril 5 MG Tab PO SCH ×2 (07:25→11:54)
[2017-07-22 07:39] LABS: CHLORIDE,CL 106 mEq/L (98-106); SODIUM,NA 140 mEq/L (136-145)
[2017-07-22] MEDS: Warfarin 2.5 MG Tab PO SCH (11:53)
[2017-07-22] MEDS: INSULIN GLARGINE SUBCUT SCH (20:21)
[2017-07-23] MEDS: Metoprolol Succinate 25 MG Tab.ER PO SCH (07:24)
[2017-07-23] MEDS: Vitamin E (dl-alpha-tocopherol acetate) 400 Unit Cap PO SCH (07:24)
[2017-07-23] MEDS: Allopurinol 300 MG Tab PO SCH (07:24)
[2017-07-23] MEDS: Calcium Carbonate/Vitamin D3 1250 MG-200 Unit Tab PO SCH (07:24)
[2017-07-23] MEDS: Ascorbic Acid 500 MG Tab PO SCH (07:25)
[2017-07-23] MEDS: Vitamin B Complex Cap PO SCH (07:25)
[2017-07-23] MEDS: Lisinopril 5 MG Tab PO SCH ×2 (07:25→11:41)
[2017-07-23] MEDS: Spironolactone 25 MG Tab PO SCH (07:25)
[2017-07-23] MEDS: Oxybutynin 5 MG Tab PO SCH ×3 (07:25→20:44)
[2017-07-23] MEDS: Carvedilol 3.125 MG Tab PO SCH ×2 (07:26→17:40)
[2017-07-23] MEDS: Multivitamin Tab PO SCH (07:26)
[2017-07-23] MEDS: Aspirin 81 MG Tab.EC PO SCH (07:26)
[2017-07-23] MEDS: Potassium Chloride 10 MEQ Tab.ER PO SCH (07:26)
[2017-07-23] MEDS: Furosemide 40 MG Tab PO SCH ×2 (07:27→15:54)
[2017-07-23] MEDS: Levothyroxine 100 MCG Tab PO SCH (07:27)
[2017-07-23] MEDS: CHROMIUM PICOLINATE PO SCH (07:57)
[2017-07-23] MEDS: LECITHIN 1200 MG PO SCH (07:57)
[2017-07-23] MEDS: Warfarin 2.5 MG Tab PO SCH (11:41)
[2017-07-23] MEDS: INSULIN GLARGINE SUBCUT SCH (20:44)
[2017-07-24] MEDS: Levothyroxine 100 MCG Tab PO SCH (06:27)
[2017-07-24] MEDS: Vitamin B Complex Cap PO SCH (07:28)
[2017-07-24] MEDS: Vitamin E (dl-alpha-tocopherol acetate) 400 Unit Cap PO SCH (07:29)
[2017-07-24] MEDS: Ascorbic Acid 500 MG Tab PO SCH (07:29)
[2017-07-24] MEDS: Calcium Carbonate/Vitamin D3 1250 MG-200 Unit Tab PO SCH (07:29)
[2017-07-24] MEDS: Lisinopril 5 MG Tab PO SCH ×2 (07:29→11:46)
[2017-07-24] MEDS: Allopurinol 300 MG Tab PO SCH (07:29)
[2017-07-24] MEDS: Carvedilol 3.125 MG Tab PO SCH (07:30)
[2017-07-24] MEDS: Furosemide 40 MG Tab PO SCH (07:30)
[2017-07-24] MEDS: Spironolactone 25 MG Tab PO SCH (07:30)
[2017-07-24] MEDS: Aspirin 81 MG Tab.EC PO SCH (07:30)
[2017-07-24] MEDS: Potassium Chloride 10 MEQ Tab.ER PO SCH (07:30)
[2017-07-24] MEDS: Oxybutynin 5 MG Tab PO SCH (07:30)
[2017-07-24] MEDS: Multivitamin Tab PO SCH (07:31)
[2017-07-24] MEDS: Metoprolol Succinate 25 MG Tab.ER PO SCH (07:31)
[2017-07-24 08:38] VITALS: BP 113/49
[2017-07-24] MEDS: LECITHIN 1200 MG PO SCH (09:15)
[2017-07-24] MEDS: CHROMIUM PICOLINATE PO SCH (09:15)
--- NOTE | 2017-07-24 10:26 | PCM.DCSUM1 ---
Discharge Summary - Hospital Course Free Text/Narrative:: Patient was admitted to swing bed from [facility] on 07/14/2017. She was admitted for physical therapy following a left total knee arthoplasty. Throughout hospital stay she progressed very well with physical therapy. Her knee pain was adequately controlled. On day two of admission, patient had elevated and irregular heart rate. EKG showed atrial fibrillation with rapid ventricular rate. D-dimer was drawn and elevated. Patient had CTA of chest, which showed no pulmonary embolism, but pleural effusion. Echo showed a 25% ejection fraction. Patient's 40 mg PO lasix dose was increased to BID from once daily. Metoprolol and Coreg were added to patients medication regimen. Patient was also started on Coumadin. This issue was also addressed in [place], but at that time patient refused medication and anticoagulation. Patient was agreeable to starting these medications during this hospital stay. Throughout remainder of hospital stay, patient was on telemetry and ventricular rate remained controlled. Patient's INR at time of discharge was 1.84. Patient was sent home on same medications as hospital stay. Patient will follow up with Dr. Rust in one week for repeat INR, BMP, and hospital discharge follow up. At time of discharge, patients left knee incision was clean, dry, and intact. No fevers. No drainage from incision. Patient had been discharged from physical therapy. Patient was ambulating independently. Patient reports pain was adequately controlled. Patient denies issues with constipation and reported she was having regular bowel movements. Patient reported that she was very pleased with her stay here and had no complaints. - Discharge Data Discharge Date: 07/24/17 Discharge Disposition: Home, Self-Care 01 Condition: Good - Discharge Diagnosis/Problem(s) (1) Status post total left knee replacement SNOMED Code(s): 6617937507731 ICD Code: Z96.652 - PRESENCE OF LEFT ARTIFICIAL KNEE JOINT Status: Acute Current Visit: Yes (2) History of diabetes mellitus SNOMED Code(s): 730934348 ICD Code: Z86.39 - PERSONAL HISTORY OF ENDO, NUTRITIONAL AND METABOLIC DISEASE Status: Chronic Priority: High Current Visit: Yes (3) Atrial fibrillation with RVR SNOMED Code(s): 488737211573430 ICD Code: I48.91 - UNSPECIFIED ATRIAL FIBRILLATION Status: Acute Priority : High Current Visit: Yes (4) Congestive heart failure (CHF) SNOMED Code(s): 21510883 ICD Code: I50.9 - HEART FAILURE, UNSPECIFIED Status: Chronic Current Visit: Yes Qualifiers: Congestive heart failure type: systolic Congestive heart failure chronicity : chronic Qualified Code(s): I50.22 - Chronic systolic (congestive) heart failure - Patient Summary/Data Consults: Consultations 07/15/17 09:05 Consult to Physical Therapy [PT Evaluation and Treatment] [CONS] Routine - Patient Instructions Diet: Heart Healthy Diet, Diabetic Diet Activity: As Tolerated, Cough & Deep Breathe, Elevate Extremity Driving: Do Not Drive (Discussed that patient cannot drive herself home, nor can she drive when taking narcotic pain medication) Showering/Bathing: May Shower, No Tub Bathing/Swimming Wound/Incision Care: Keep Operative Site/Wound Site Clean and Dry Notify Provider of: Fever, Increased Pain, Swelling and Redness, Drainage, Nausea and/or Vomiting - Discharge Plan Prescriptions/Med Rec: oxyCODONE HCl [Oxycodone HCl] 5 mg PO Q6HR PRN #10 capsule PRN Reason: Pain (Moderate 4-6) Carvedilol [Coreg] 3.125 mg PO BID #90 tablet Metoprolol Succinate [Toprol XL] 25 mg PO DAILY #90 tab.er Warfarin [Coumadin] 7.5 mg PO DAILY 30 Days tablet Home Medications: Home Meds Allopurinol 300 mg PO DAILY 01/03/15 [History] Ascorbic Acid [Vitamin C] 500 mg PO DAILY 01/03/15 [History] Chromium Picolinate 600 mcg PO DAILY 01/03/15 [History] Furosemide 40 mg PO BID 01/03/15 [History] Insulin Glarg,Human.Rec.Analog [LantUS] 20 unit SUBCUT BEDTIME 01/03/15 [History ] Levothyroxine 200 mcg PO ACBREAKFAST 01/03/15 [History] Oxybutynin 5 mg PO TID 01/03/15 [History] Potassium Chloride [Klor-Con M20] 20 meq PO DAILY 01/03/15 [History] Spironolactone [Spironolactone] 25 mg PO DAILY 01/03/15 [History] Vitamin B Complex 3 each PO DAILY 01/03/15 [History] Vitamin E 400 unit PO DAILY 01/03/15 [History] Zolpidem Tartrate 10 mg PO BEDTIME PRN 03/31/15 [History] Calcium Carbonate/Vitamin D3 [Calcium 500-Vit D3 200 Tablet] 1 tab PO DAILY 06/22 [History] Lecithin 1,200 mg PO DAILY 07/14/17 [History] Magnesium Gluconate [Mag-G] 500 mg PO DAILY 07/14/17 [History] Multivitamin with Minerals [Multiple Vitamin] 1 tab PO DAILY 07/14/17 [History] Carvedilol [Coreg] 3.125 mg PO BID #90 tablet 07/24/17 [Rx] Metoprolol Succinate [Toprol XL] 25 mg PO DAILY #90 tab.er 07/24/17 [Rx] Warfarin [Coumadin] 7.5 mg PO DAILY 30 Days tablet 07/24/17 [Rx] oxyCODONE HCl [Oxycodone HCl] 5 mg PO Q6HR PRN #10 capsule 07/24/17 [Rx] Patient Handouts: Total Knee Replacement, Care After, [id number], Atrial Fibrillation, [id number] Referrals: Buster Rust MD [Primary Care Provider] - - General Info Date of Service: 07/24/17 Admission Dx/Problem (Free Text: Left Total Knee Arthroplasty Atrial Fibrillation With Rapid Ventricular Rate Congestive Heart Failure- Ejection fraction 25% Type II Diabetes Mellitus Functional Status: Reports: Pain Controlled, Tolerating Diet, Ambulating, Urinating. Denies: New Symptoms - Review of Systems General: Reports: No Symptoms. Denies: Fever, Weakness, Fatigue, Chills HEENT: Reports: No Symptoms Pulmonary: Reports: No Symptoms. Denies: Shortness of Breath, Cough Cardiovascular: Reports: No Symptoms. Denies: Chest Pain, Palpitations, Dyspnea on Exertion, Lightheadedness Gastrointestinal: Reports: No Symptoms, Other (hernia). Denies: Abdominal Pain , Constipation, Decreased Appetite, Diarrhea, Hematochezia, Melena, Nausea, Vomiting Genitourinary: Reports: No Symptoms. 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 Denies: Headache Psychiatric: Reports: No Symptoms - Patient Data Vitals - Most Recent: Last Vital Signs Temp 97.6 F 07/24/17 08:00 Pulse 56 L 07/24/17 08:00 Resp 20 07/24/17 08:00 BP 113/49 L 07/24/17 08:00 Pulse Ox 96 07/24/17 08:00 Weight - Most Recent: 237 lb 9.6 oz Lab Results - Last 24 hrs: Laboratory Results - last 24 hr 07/24/17 07/24/17 Range/Units 07:50 08:03 PT 20.3 H (9.7-12.3) SEC INR 1.84 H (0.92-1.18) POC Glucose 195 H (75-105) mg/dl Med Orders - Current: Current Medications Allopurinol (Zyloprim) 300 mg PO DAILY [facility] Last Admin: 07/24/17 07:29 Dose: 300 mg Ascorbic Acid (Vitamin C) 500 mg PO DAILY [facility] Last Admin: 07/24/17 07:29 Dose: 500 mg Aspirin (Halfprin) 81 mg PO WITHBREAKFAST [facility] Last Admin: 07/24/17 07:30 Dose: 81 mg Calcium Carbonate (Calcium Carbonate/Vitamin D 1250 Mg-200 Unit) 1 tab PO DAILY [facility] Last Admin: 07/24/17 07:29 Dose: 1 tab Carvedilol (Coreg) 3.125 mg PO BIDM [facility] Last Admin: 07/24/17 07:30 Dose: 3.125 mg Furosemide (Lasix) 40 mg PO BIDDIURETIC [facility] Last Admin: 07/24/17 07:30 Dose: 40 mg Levothyroxine Sodium (Synthroid) 200 mcg PO ACBREAKFAST [facility] Last Admin: 07/24/17 06:27 Dose: 200 mcg Lisinopril (Prinivil) 5 mg PO 0800,1200 [facility] Last Admin: 07/24/17 07:29 Dose: 5 mg Magnesium Oxide (Magnesium Oxide) 500 mg PO DAILY [facility] Last Admin: 07/24/17 07:28 Dose: 500 mg Metoprolol Succinate (Toprol Xl) 25 mg PO DAILY [facility] Last Admin: 07/24/17 07:31 Dose: 25 mg Multivitamins/Minerals/Vitamin C (Tab-A-Addy) 1 tab PO DAILY [facility] Last Admin: 07/24/17 07:31 Dose: 1 tab Ptom [Chromium (Picolinate] 600 Mcg)) 600 mcg PO DAILY [facility] Last Admin: 07/24/17 09:15 Dose: Not Given Ptom [Lecithin] 1, (200 Mg)) 1,200 mg PO DAILY [facility] Last Admin: 07/24/17 09:15 Dose: Not Given Sample--Lantus (Insulin Pen) 0 each SUBCUT BEDTIME [facility] Last Admin: 07/23/17 20:44 Dose: 20 each Oxybutynin Chloride (Oxybutynin) 5 mg PO TID [facility] Last Admin: 07/24/17 07:30 Dose: 5 mg Oxycodone HCl (Oxycodone) 5 mg PO Q6H PRN PRN Reason: pain Last Admin: 07/24/17 07:56 Dose: 5 mg Polyethylene Glycol (Miralax) 17 gm PO DAILY PRN PRN Reason: CONSTIPATION Potassium Chloride (Klor-Con 10) 20 meq PO DAILY [facility] Last Admin: 07/24/17 07:30 Dose: 20 meq Senna (Senna) 8.6 mg PO BID PRN PRN Reason: CONSTIPATION Spironolactone (Aldactone) 25 mg PO DAILY [facility] Last Admin: 07/24/17 07:30 Dose: 25 mg Vitamin B Complex (Vitamin B Complex) 3 each PO DAILY [facility] Last Admin: 07/24/17 07:28 Dose: 3 each Vitamin E (Vitamin E) 400 units PO DAILY [facility] Last Admin: 07/24/17 07:29 Dose: 400 units Warfarin Sodium (Coumadin) 7.5 mg PO 1200 [facility] Last Admin: 07/23/17 11:41 Dose: 7.5 mg Zolpidem Tartrate (Ambien) 10 mg PO BEDTIME PRN PRN Reason: Insomnia Discontinued Medications Hydrocodone Bitart/Acetaminophen ([place] 325-5 Mg) 1 tab PO Q6H PRN PRN Reason: Pain Stop: 07/20/17 17:13 Last Admin: 07/20/17 04:46 Dose: 1 tab Aspirin (Aspirin) 325 mg PO WITHBREAKFAST [facility] Stop: 07/25/17 08:01 Last Admin: 07/15/17 08:05 Dose: 325 mg Aspirin (Ecotrin) 325 mg PO WITHBREAKFAST [facility] Stop: 07/25/17 08:01 Last Admin: 07/17/17 10:15 Dose: Not Given Celecoxib (Celebrex) 100 mg PO BIDMEALS [facility] Stop: 07/21/17 17:16 Last Admin: 07/21/17 08:29 Dose: 100 mg Furosemide (Lasix) 40 mg PO BIDDIURETIC [facility] Last Admin: 07/15/17 15:52 Dose: Not Given Furosemide (Lasix) 40 mg PO DAILY [facility] Last Admin: 07/17/17 10:15 Dose: Not Given Insulin Detemir (Levemir) 20 unit SUBCUT BEDTIME [facility] Last Admin: 07/14/17 20:16 Dose: 20 unit Insulin Detemir (Levemir) 20 unit SUBCUT BEDTIME [facility] Last Admin: 07/21/17 20:24 Dose: Not Given Iopamidol (Isovue-370 (76%)) 100 ml IVPUSH ONETIME ONE Stop: 07/16/17 16:18 Last Admin: 07/16/17 16:40 Dose: 100 ml Polyethylene Glycol (Miralax) 17 gm PO DAILY [facility] Last Admin: 07/15/17 08:06 Dose: Not Given Senna (Senna) 8.6 mg PO BID [facility] Last Admin: 07/15/17 08:06 Dose: Not Given Tramadol HCl (Ultram) 100 mg PO Q6H PRN PRN Reason: Pain Stop: 07/21/17 17:16 Warfarin Sodium (Coumadin) 5 mg PO DAILY@1200 [facility] Last Admin: 07/21/17 12:23 Dose: 5 mg Warfarin Sodium 2 mg/ Warfarin (Sodium 5 mg) 7 mg PO DAILY@1200 [facility] - Exam Quality Assessment: Reports: DVT Prophylaxis General: Reports: Alert, Oriented, No Acute Distress HEENT: Reports: Pupils Equal, Pupils Reactive, EOMI, Mucous Membr. Moist/[place] Neck: Reports: Supple, Trachea Midline, No JVD Lungs: Reports: Clear to Auscultation, Normal Respiratory Effort, Decreased Breath Sounds (bases) Cardiovascular: Reports: Regular Rate, No Murmurs, Irregular Rhythm GI/Abdominal Exam: Normal Bowel Sounds, Soft, Non-Tender, No Organomegaly, No Distention, No Abnormal Bruit, No Mass, Pelvis Stable, Hernia (Female) Exam: Deferred Rectal (Female) Exam: Deferred Back Exam: Reports: Normal Inspection, Full Range of Motion Extremities: Normal Range of Motion (slightly decrease to left knee due to pain) , Non-Tender, Normal Capillary Refill, Pedal Edema, Joint Swelling (left knee), Limited Range of Motion (left knee), Other (luis felipe BLE). No: Increased Warmth, Redness Skin: Reports: Warm, Dry, Intact Wound/Incisions: Reports: Healing Well, Dressing Dry and Intact, No Drainage. Denies: Erythema Neurological: Reports: No New Focal Deficit, Normal Gait, Normal Speech Psy/Mental Status: Reports: Alert, Normal Affect, Labile Mood *Q Meaningful Use (DIS) - VTE *Q VTE Criteria *Q: - Stroke *Q Stroke Criteria *Q: - AMI *Q AMI Criteria *Q:
[2017-07-24] MEDS: Warfarin 2.5 MG Tab PO SCH (11:46)
== END 2017-07-24 14:40 | disposition home or self-care (01) | DRG 560 ==
LOC: CC.MS 15:34 → UNDOADMIN 15:34 → CC.MS 16:57
PROVIDERS: ADMIT General Practice; ATTEND General Practice
DX: Z47.1 Aftercare following joint replacement surgery (principal); Z68.42 Body mass index [BMI] 45.0-49.9, adult; I50.22 Chronic systolic (congestive) heart failure; Z96.652 Presence of left artificial knee joint; I48.91 Unspecified atrial fibrillation; I25.10 Atherosclerotic heart disease of native coronary artery without angina pectoris; E78.00 Pure hypercholesterolemia, unspecified; I11.0 Hypertensive heart disease with heart failure; E11.9 Type 2 diabetes mellitus without complications; E66.9 Obesity, unspecified; E03.9 Hypothyroidism, unspecified; I49.1 Atrial premature depolarization; M10.9 Gout, unspecified; Z79.82 Long term (current) use of aspirin; Z79.899 Other long term (current) drug therapy; Z79.4 Long term (current) use of insulin; Z86.14 Personal history of Methicillin resistant Staphylococcus aureus infection
CPT/HCPCS: 36415; 71275; 80048; 81001; 82962; 83735; 83880; 85025; 85379; 85610; 87070; 93005; 93306; 97110-GP; 97116-GP; 97161-GP; 97530-GP; A9270-GY; J1815-GY; Q9967